=== PATIENT | male | born 1965 | race Caucasian/White ===

== ENCOUNTER 2024-04-24 21:18 | Emergency (ER) | payer MEDICAID, SELFPAY ==
[2024-04-24 21:19] VITALS: BMI 30.7
[2024-04-24 21:24] VITALS: BP 134/89; PULSE 111; RESP 20; TEMP 37.3; O2SAT 96
--- NOTE | 2024-04-24 21:45 | EKG_ITS ---
[facility] Test Date: 2024-04-24 Pat Name: DANELLE STAPLETON Department: Room: - Gender: Male Material Mixer: : 1965 Requested By: Brian Delacruz Order Number: [id number] Reading MD: Brian Delacruz Measurements Intervals [place] Rate: 99 P: 41 HI: 124 QRS: 29 QRSD: 100 T: 54 QT: 336 QTc: 432 Interpretive Statements SINUS RHYTHM INCOMPLETE RIGHT BUNDLE BRANCH BLOCK [90+ ms QRS DURATION, TERMINAL R IN V1/V2, 40+ ms S IN I/aVL/V4/V5/V6] No previous ECG available for comparison /[id number]/[email or web address]/[id number]
--- NOTE | 2024-04-24 21:45 | XR_ITS ---
Examination: PA lateral chest 2 views Technique: Upright PA lateral chest 2 views Exam date and time: April 24, 2024 1024 hrs. Indications: Coughing chest pain beginning 2 weeks ago Findings: Normal heart size Lungs are clear. The osseous structures are intact Impression: No active disease
[2024-04-24 22:10] LABS: Lactate (Lactic Acid) 1.6 mMol/L (0.4-2.0)
[2024-04-24 22:13] LABS: Basophils % (Auto) 0 % (0-2.5); Eosinophils % (Auto) 0 % (0-10); Hematocrit 41.4 % (41.0-53.0); Hemoglobin 14.1 g/dL (13.5-16.0); Immature Granulocytes % (Auto) 0 % (0-0); Immature Granulocytes Auto 0.01 Thou/mm3 (0.00-0.00); Lymphocytes # (Auto) 1.2 Thou/mm3 (1.0-4.8); Lymphocytes % (Auto) 17 % (10-50); Mean Corpuscular HGB Conc 34.1 g/dl (31.0-37.0); Mean Corpuscular Hemoglobin 29.9 pg (25.0-35.0); Mean Corpuscular Volume 88 fL (80-100); Monocytes # (Auto) 0.9 Thou/mm3 (0.0-0.8); Monocytes % (Auto) 13 % (0-12); Neutrophils # (Auto) 4.9 Thou/mm3 (1.8-7.7); Neutrophils % (Auto) 70 % (37-80); Nucleated Red Blood Cell % 0 /100 WBC (0); Platelet Count 202 Thou/mm3 (140-440); RDW Standard Deviation 39.8 fL (35.1-43.9); Red Blood Count 4.71 Miln/mm3 (4.50-5.90)
[2024-04-24 22:34] LABS: B-Type Natriuretic Peptide 26 pg/mL (0-100)
[2024-04-24 22:40] LABS: Alanine Aminotransferase 33 U/L (10-49); Albumin, Serum 5.2 gm/dL (3.5-5.0); Anion Gap 9 (7-16); Aspartate Amino Transferase 33 U/L (0-34); BUN/Creatinine Ratio 13 Ratio (12-20); Bilirubin,Total 0.4 mg/dL (0.3-1.2); Blood Urea Nitrogen 25 mg/dL (9-23); Carbon Dioxide 24.1 mMol/L (20.0-31.0); Chloride 101 mMol/L (98-107); Creatinine (Component) 1.9 mg/dL (0.6-1.3); Estimated Creatinine Clearance 52.6 mL/min (>60); Globulin 2.6 gm/dL (2.3-3.5); Glucose 96 mg/dL (74-106); Osmolality,Calculated 272 (275-295); Potassium 4.3 mMol/L (3.4-5.1); Sodium 134 mMol/L (136-145); Total Protein 7.8 gm/dL (5.7-8.2); Troponin I < 0.020 ng/mL (0.0-0.045); eGFR 40 See Note
[2024-04-24 22:41] LABS: Alkaline Phosphatase 65 U/L (46-116); Procalcitonin 0.24 ng/ml (0.0-0.49)
[2024-04-24 23:22] LABS: Collection Type, Urine Clean Catch
[2024-04-24] MEDS: SODIUM CHLORIDE 0.9% 1000 ML 1,000 ML 999 ML IV (23:33)
--- NOTE | 2024-04-24 23:34 | PD.EDSOB ---
ED SOB =RME/HPI General Chief Complaint: General Adult/Misc Complain Stated Complaint: COUGH X 2 WEEKS,ABD AND BACK PAIN Time Seen by Provider: 04/24/24 21:44 Arrival date/time: 04/24/24 21:18 59M with history of HTN presents to ED with 2 weeks of dry cough, as well as some back pain from coughing so much, but denies dysuria/hematuria, CP, and SOB. Patient recently started on lisinopril. Limitations: no limitations Related Data Previous Rx's ?Medication ?Instructions ?Recorded Hydrocodone/Acetaminophen * (NORCO 1 tab PO Q6H PRN PAIN #14 tabs 08/26/15 5/325 *) Allergies Allergy/AdvReac Type Severity Reaction Status Date / Time dextromethorphan Allergy Mild HIVES Verified 08/26/15 13:42 doxylamine Allergy Mild HIVES Verified 08/26/15 13:42 pseudoephedrine Allergy Mild HIVES Verified 08/26/15 13:42 Review of Systems Review of Systems Systems Reviewed: All systems reviewed, normal except as documented Constitutional Constitutional: Reports system reviewed and no additional complaints, except as documented, Denies fever(s) and Denies headache(s) ENT Ears, Nose, Mouth, and Throat: Denies disequilibrium and Denies headache(s) Cardiovascular Cardiovascular: Reports system reviewed and no additional complaints, except as documented and Denies chest pain Respiratory Respiratory: Reports system reviewed and no additional complaints, except as documented, Reports as per HPI and Reports cough Gastrointestinal Gastrointestinal: Reports system reviewed and no additional complaints, except as documented, Denies abdominal pain, Denies nausea and Denies vomiting Genitourinary Genitourinary: Reports as per HPI and Reports flank pain Musculoskeletal Musculoskeletal: Reports as per HPI and Reports back pain Neurologic Neurologic: Reports system reviewed and no additional complaints, except as documented, Denies confusion, Denies disequilibrium and Denies headache(s) Psychiatric Psychiatric: Denies confusion Past Medical History Social History SMOKING STATUS: Never smoker ED Exam General Limitations: Present no limitations General appearance: Present alert and in no apparent distress Head Head exam: Present atraumatic Eye Eye exam: Present normal appearance, PERRL and EOMI ENT ENT exam: Present normal exam, normal oropharynx and mucous membranes moist Neck Neck exam: Present normal inspection, full ROM and trachea midline Chest Chest inspection: Present normal inspection and symmetric chest wall rise Respiratory Respiratory exam: Present normal lung sounds bilaterally Cardiovascular Cardiovascular exam: Present regular rate, normal rhythm and normal heart sounds Abdominal Exam Abdominal exam: Present soft and normal bowel sounds Extremities Exam Extremities exam: Present normal inspection and full ROM Back Exam Back exam: Present normal inspection and full ROM Neurological Exam Neurological exam: Present alert, oriented X3 and CN II-XII intact Psychiatric Psychiatric exam: Present normal affect and normal mood Skin Skin exam: Present warm, dry, intact and normal color Course Quality Measures none Orders Category Date Time Status Bedside Influenza A&B Antigen Test NOW Care 04/24/24 21:46 Completed EKG (ED ONLY) *Do not use* NOW Care 04/24/24 21:46 Completed Insert IV NOW Care 04/24/24 22:51 Completed EKG (ED Only) Stat Exams 04/24/24 21:45 Draft XR chest 2V Stat Exams 04/24/24 21:45 Completed B-Type Natriuretic Peptide Stat Lab 04/24/24 21:55 Completed BMP [Basic Metabolic Panel] Stat Lab 04/25/24 01:49 Completed CBC Stat Lab 04/24/24 21:55 Completed Comprehensive Metabolic Panel Stat Lab 04/24/24 21:55 Completed Drug Screen,Urine Stat Lab 04/24/24 23:10 Completed Lactate (Lactic Acid) Stat Lab 04/24/24 21:55 Completed Procalcitonin Stat Lab 04/24/24 21:55 Completed Troponin I Stat Lab 04/24/24 21:55 Completed Urinalysis, C/S if Indicated Stat Lab 04/24/24 23:10 Completed Sodium Chloride 0.9% 1000 ml [Ns] 1,000 ml Med 04/24/24 22:51 Discontinued IV 999 mls/hr Vital Signs Vital signs: Vital Signs Temperature 99.1 F 04/24/24 21:24 Pulse Rate 111 H 04/24/24 21:24 Respiratory Rate 20 04/24/24 21:24 Blood Pressure 134/89 H 04/24/24 21:24 Pulse Oximetry (%) 96 04/24/24 21:24 Oxygen Delivery Method Room Air 04/24/24 21:24 O2 at 96% on RA and WNLs Shortness of Breath / Dyspnea MDM Narrative MDM Narrative:: 59M with history of HTN presents to ED with 2 weeks of dry cough, as well as some back pain from coughing so much, but denies dysuria/hematuria, CP, and SOB. Patient recently started on lisinopril. Physical exam reveals clear ENT and lungs. No flank tenderness. Patient is afebrile, calm, and alert. EKG is NSR. CXR normal. Trop and BNP normal. CMP reveals mild Cr elevation of 1.9. UA clean. After 1L IVF Cr reduced to 1.6 and BUN normalized. Likely dehydration and MARTIN-induced cough. Counseled to stop lisinopril, keep taking amlodipine and follow-up with PCP. Patient data External records reviewed:: [facility] previous records Clinical information provided by:: patient Social determinants that could affect healthcare access:: none Patient has the following chronic illnesses:: HTN How is presenting disease/condition affected by chronic disease/condition?: exacerbated by Evaluation data The following diagnostics were reviewed and interpreted by me:: lab results, radiology exam(s) and EKG tracing(s) Lab and/or radiology exams considered but not ordered:: ordered Interpretation Summary: above Medications / Prescriptions Medications or Prescriptions considered but not ordered:: ordered Medication administrations:: Medication Administration History Discontinued Medications Sodium Chloride (Ns) 1,000 mls @ 999 mls/hr IV .Q1H1M ONE Stop: 04/24/24 23:51 Last Infusion: 04/25/24 01:01 Dose: Infused Documented By: Admin: 04/24/24 23:33 Dose: 999 mls/hr Documented By: above Consultations Consultation(s) initiated? (list below): No Diagnosis Shortness of Breath Differential Diagnosis: acute exacerbation of chronic obstructive airways disease, congestive heart failure, community acquired pneumonia, asthma with exacerbation, pulmonary embolism and other (martin-induced cough and dehydration, UTI, kidney stone) Most likely diagnosis given after review of the tests above:: martin-induced cough and dehydration Admission Indicated Admission indicated?: not indicated Admission Request Was there a request for admission?: No Disposition Plan Disposition Plan: Discharge Discharge Attestation Discharge Attestation: The patient and all family members were given an opportunity to ask questions and understood the discharge instructions. Discharge instructions specifically effects, indications for sooner follow up or return to the emergency department, and the expected course of current diagnosis. Patient condition: Stable Discharge Plan Plan Patient Disposition: HOME (Self Care) Disposition Comment: Stable Prescriptions/Referrals Prescriptions/Med Rec: No Action Hydrocodone/Acetaminophen * (NORCO 5/325 *) 1 TAB tablet 1 tab PO Q6H PRN (Reason: PAIN) Qty: 14 0RF Referrals: No Primary/Family,Physician [Primary Care Provider] - In 1 week Problem List Clinical Impression: MARTIN-inhibitor cough, Dehydration Patient/Caregiver Discharge Instructions Education Materials: ED Dehydration (Adult) Additional Instructions: Please follow-up with PCP within 24-48 hours and return immediately if symptoms worsen. Can stop lisinopril. Continue taking amlodipine. Stay hydrated. Print Language: Hungarian Stand Alone Forms: Patient Portal Info Letter PA/P[employer]LE [employer]ER Supervising Physician PA/[employer] Supervising Physician: Dr. Berman
[2024-04-24 23:57] LABS: Amphetamine/Methamp Scrn,U Negative (Negative); Barbiturate Screen,Urine Negative (Negative); Benzodiazepines Screen,Urine Negative (Negative); Benzoylecgonine Screen, Ur Negative (Negative); Fentanyl Screen,Urine Negative (Negative); Opiate Screen,Urine Negative (Negative); THC Screen,Urine Negative (Negative)
[2024-04-25] LABS: Bilirubin,Urine Negative (Negative); Blood,Urine Negative (Negative); Clarity,Urine Turbid (Clear/Hazy); Color,Urine Yellow (Lt Yel-Yel); Culture Indicated,Urine Not Indicated; Glucose, Urine Negative (Negative); Hyaline Casts,Urine 1 /hpf (0-1); Ketones,Urine Negative (Negative); Leukocyte Esterase,Urine Negative (Negative); Nitrite,Urine Negative (Negative); PH,Urine 5.5 (5.0-7.0); Protein,Urine 1+ (Neg - Trace); RBC,Urine 1 /hpf (0-3); Specific Gravity,Urine 1.023 (1.001-1.035); Squamous Epithelial Cell,Urine 1 /hpf (0-5); Urobilinogen,Urine Negative mg/dL (0.0-1.0); WBC,Urine 4 /hpf (0-5)
[2024-04-25 02:18] LABS: Anion Gap 8 (7-16); BUN/Creatinine Ratio 14 Ratio (12-20); Blood Urea Nitrogen 22 mg/dL (9-23); Calcium 9.3 mg/dL (8.3-10.6); Carbon Dioxide 25.7 mMol/L (20.0-31.0); Chloride 103 mMol/L (98-107); Creatinine (Component) 1.6 mg/dL (0.6-1.3); Estimated Creatinine Clearance 62.5 mL/min (>60); Glucose 99 mg/dL (74-106); Osmolality,Calculated 277 (275-295); Potassium 4.2 mMol/L (3.4-5.1); Sodium 137 mMol/L (136-145); eGFR 50 See Note
[2024-04-25 02:28] VITALS: BP 149/80; PULSE 72; RESP 18; TEMP 37.3; O2SAT 96
== END 2024-04-25 02:42 | disposition home or self-care (01) ==
PROVIDERS: Physician Assistant; Emergency Provider Emergency Medicine
DX: E86.0 Dehydration (principal); R05.9 Cough, unspecified; I10 Essential (primary) hypertension
CPT/HCPCS: 36415; 71046; 80048; 80053; 80307; 81001; 83605; 83880; 84145; 84484; 85025; 87400; 93005; 96360; 99284; J7030